=== PATIENT | female | born 1945 | race Caucasian/White ===

== ENCOUNTER 2016-08-24 11:37 | Inpatient (IN) | payer MEDICARE, OTHER ==
[~2016-08-24] VITALS: Ht 167.6 cm; Wt 60.8 kg
[2016-08-24] MEDS ORDERED: ARIP5TAB20 PO (11:53)
--- NOTE | 2016-08-24 12:06 | NUR ---
DR MANUEL AT THE BEDSIDE FOR EVAL AND EXAM.
[2016-08-24 12:36] LABS: BASOPHILS # (AUTO) 0.1 K/uL (0.0-8.0); BASOPHILS % (AUTO) 1.1 % (0.0-2.0); EOSINOPHILS # (AUTO) 0.1 K/uL (0.0-0.7); EOSINOPHILS % (AUTO) 1.7 % (0.0-7.0); HEMATOCRIT 43.1 % (31.2-41.9); HEMOGLOBIN 14.3 g/dL (10.9-14.3); LYMPHOCYTES # (AUTO) 1.4 K/uL (20.0-40.0); LYMPHOCYTES % (AUTO) 26.7 % (20.5-51.5); MEAN CORPUSCULAR HGB CONC 33 g/dL (32.3-35.6); MEAN CORPUSCULAR VOLUME 93.8 fL (75.5-95.3); MONOCYTES # (AUTO) 0.4 K/uL (2.0-10.0); MONOCYTES % (AUTO) 7.9 % (0.0-11.0); NEUTROPHILS # (AUTO) 3.2 K/uL (1.8-8.9); NEUTROPHILS % (AUTO) 62.6 % (38.5-71.5); PLATELET COUNT (AUTO) 201 K/uL (179-408); WHITE BLOOD COUNT (AUTO) 5.3 K/uL (3.8-11.8)
[2016-08-24 12:36] LABS: *BLOOD, URINE NEGATIVE (NEGATIVE); *CLARITY,URINE SLIGHTLY CLOUDY (CLEAR); *COLOR,URINE YELLOW (YELLOW); *KETONES,URINE NEGATIVE (NEGATIVE); *PROTEIN,URINE 1+ (NEGATIVE); LEUKOCYTE ESTERASE ,URINE 1+ (NEGATIVE); NITRITE, URINE NEGATIVE (NEGATIVE); PH,URINE 5.5 (5.0-8.0); UGLUCOSE NEGATIVE (NEGATIVE)
[2016-08-24 12:41] LABS: *BILIRUBIN,URIN NEGATIVE (NEGATIVE)
[2016-08-24 12:45] LABS: BACTERIA,URINE FEW /HPF (NONE SEEN); RBC,URINE 0-3 /HPF (0-3); SQUAMOUS EPITHELIAL CELL,UR FEW /HPF (NONE SEEN)
[2016-08-24 12:53] LABS: ALANINE AMINOTRANSFERASE 34 U/L (14-59); ALKALINE PHOSPHATASE 56 U/L (50-136); ASPARTATE AMINOTRANSFERASE 33 U/L (15-37); BILIRUBIN,DIRECT 0.2 mg/dL (0.0-0.2); BILIRUBIN,TOTAL 0.8 mg/dL (0.2-1.0); CALCIUM 9.6 mg/dL (8.5-10.1); CARBON DIOXIDE 28 mmol/L (21-32); CHLORIDE 105 mmol/L (98-107); CREATININE 1.3 mg/dL (0.6-1.3); GLUCOSE 98 mg/dL (74-106); POTASSIUM 3.6 mmol/L (3.5-5.1); SODIUM SERUM 142 mmol/L (136-145); TOTAL PROTEIN, SERUM 7.3 g/dL (6.4-8.2)
[2016-08-24 12:55] LABS: *AMPHETAMINE, URINE NEGATIVE (NEGATIVE); *BARBITURATE, URINE NEGATIVE (NEGATIVE); *CANNABINOID, URINE NEGATIVE (NEGATIVE); *COCCAINE, URINE NEGATIVE (NEGATIVE); *OPIATE, URINE POSITIVE (NEGATIVE); *PHENCYCLIDINE SCREEN,URINE NEGATIVE (NEGATIVE)
[2016-08-24 12:55] LABS: ETHANOL < 3 MG/DL (0-0)
--- NOTE | 2016-08-24 13:01 | NUR ---
LUNCH PROVIDED, PT ASSISSTED BY SON FOR FEEDING. NO C/O PAIN. PT REMAINS COOPERATIVE.
[2016-08-24 13:02] LABS: UREA NITROGEN, BLOOD 16 mg/dL (7-18)
[2016-08-24 13:23] LABS: ACETAMINOPHEN < 2.0 ug/mL (10-30)
--- NOTE | 2016-08-24 13:46 | NUR ---
PT IS MEDICALLY CLEARED BY DR MANUEL. JO ANN NEVES NOTIFIED AND WILL BE AVAILABLE AFTER 30-5. PER REQUEST CALLED AND LEFT MESSAGE FOR DEXTER(PET TEAM).
--- NOTE | 2016-08-24 14:09 | NUR ---
DEXTER FROM PET ETA IS 10 MIN.
--- NOTE | 2016-08-24 14:20 | NUR ---
ART FROM PET AT THE BEDSIDE FOR PSYCH EVAL.
--- NOTE | 2016-08-24 14:40 | NUR ---
PT PLACED ON 5150 HOLD FOR GD AND DO.
[2016-08-24 15:45] VITALS: BP 140/80
[2016-08-24] MEDS ORDERED: MAGNESIUM HYDROXIDE 30 ML LIQUID UDC PO PRN (16:00)
--- NOTE | 2016-08-24 16:56 | NUR ---
GPS.RN- ADMISSION NOTE Patient admitted on 5150 for Danger to Herself and Grave Disability, per 5150 Dr Barrios asked that pet team evaluate patient for a 5150, Patient or a 5150 . patient brought in by sons from [facility] [employer] [place] due to Threatening suicide, increased agitation confusion and disorganized past four weeks. Patient disoriented except for her name , patient easily agitated when asked questions past 4 weeks including today nonstop SI hiding knives. Unable to be managed at home very labile. History of psychiatric hospitalizations and suicide attempts. Patient in ER told her sons she wanted to kill herself. Upon face assessment, patient is oriented to self only, patient s easily irritable upon asking questions stating "I am just stupid", patient is labile and aggressive towards son when providing her information on her admission, angry labile. patient has poor insight. patient confused to place time and situation, believes she is in her apartment and that "Nathan" is upstairs. patient has been hospitalized before for psych 4 times suicide attempts x3.
[2016-08-24] MEDS: CLONAZEPAM 0.5 MG TABLET PO PRN (17:42)
--- NOTE | 2016-08-24 18:04 | NUR ---
GPS/RN -PATIENT PROVIDED WITH PRN KLONOPIN, EFFECTIVE AT THIS TIME PATIENT RESTING IN BED CONSTANTLY TRYING TO AWOL, ANXIOUS, RESTLESS.
[2016-08-24 20:00] VITALS: BP 119/75
--- NOTE | 2016-08-25 06:17 | NUR ---
GPS: REMAIN CALM AND COOPERATIVE WITH CARE. SLEPT 4 HRS THROUGH THE NIGHT. PLEASANT UPON APPROACH. NO BEHAVIOR PROBLEM NOTED. CONTINUE PLAN OF CARE.
[2016-08-25 08:00] VITALS: BP 119/71
[2016-08-25] MEDS: CLONAZEPAM 0.5 MG TABLET PO PRN ×2 (08:28→14:32)
--- NOTE | 2016-08-25 10:24 | NUR ---
Initial discharge plan: Pt has been residing at her son's [Bjorn, ] apartment [[address];[place] [address]] recently.ASHLEY spoke with pt and she would like to return with her son.ASHLEY spoke with the son and he agreed to have his mother discharged back to his home.Son also agreed to arrange for transportation.ASHLEY will speak to MD, patient, and family to ensure an appropriate discharge plan is created.ASHLEY will form a safe and proper discharge plan.
--- NOTE | 2016-08-25 15:27 | NUR ---
Reviewed psychosocial done by Grey Teran. Addendum: 08/25/16 at 1527 by CHANG RAMIREZ Amended: Links added.
[2016-08-25 16:00] VITALS: BP 123/72
[2016-08-25] MEDS: OLANZAPINE ZYDIS 5 MG TAB.RAPDIS PO SCH ×2 (19:02→20:38)
[2016-08-25 20:22] VITALS: BP 128/64
[2016-08-25] MEDS: DIVALPROEX 250 MG TABLET.DR PO SCH (20:38)
--- NOTE | 2016-08-25 20:40 | NUR ---
ABLE TO TAKE HS MEDICATIONS ORDERED. ALERT TO SELF. HAS RISK FOR ELOPEMENT, CONSTANTLY BEING MONITORED. REMAINED CALM. NO SIGNS OF AGITATION OR AGGRESSION NOTED. NO ACUTE DISTRESS NOTED. WILL CONTINUE TO MONITOR
--- NOTE | 2016-08-26 06:43 | NUR ---
ABLE TO SLEEP FOR A TOTAL OF 6.30 HOURS. NO ACUTE DISTRESS NOTED. STILL NEEDS REDIRECTION. NO ATTEMPTS OF ELOPEMENT NOTED FOR THE SHIFT. NEEDS ATTENDED.
[2016-08-26 08:00] VITALS: BP 131/97
[2016-08-26] MEDS: DIVALPROEX 250 MG TABLET.DR PO SCH ×2 (09:20→20:53)
[2016-08-26] MEDS: OLANZAPINE ZYDIS 5 MG TAB.RAPDIS PO SCH ×3 (09:20→20:54)
[2016-08-26 16:23] VITALS: BP 119/68
[2016-08-26 20:37] VITALS: BP 135/67
[2016-08-27 07:30] VITALS: BP 107/53
[2016-08-27] MEDS: OLANZAPINE ZYDIS 5 MG TAB.RAPDIS PO SCH ×3 (09:18→20:17)
[2016-08-27] MEDS: DIVALPROEX 250 MG TABLET.DR PO SCH ×2 (09:18→20:17)
[2016-08-27 15:28] VITALS: BP 113/78
[2016-08-27 20:11] VITALS: BP 127/72
--- NOTE | 2016-08-27 22:06 | NUR ---
PATIENT REMAINS DISORIENTED, WALKING AROUND WITH A PILLOW CASE FILLED WITH MAGAZINES. PATIENT REQUIRES FREQUENT PROMPTING AND REDIRECTION. NO COMBATIVE BEHAVIOR, OR AGGRESSIVE BEHAVIOR NOTED WILL CONTINUE TO MONITOR.PATIENT VISIBLE ON UNIT, COMPLIANT WITH HS MEDICATION. PATIENT DENIES SI, WILL CONTINUE TO MONITOR.
[2016-08-28 07:30] VITALS: BP 128/66
[2016-08-28] MEDS: DIVALPROEX 250 MG TABLET.DR PO SCH ×2 (08:25→20:05)
[2016-08-28] MEDS: OLANZAPINE ZYDIS 5 MG TAB.RAPDIS PO SCH ×3 (08:25→20:05)
[2016-08-28 15:02] VITALS: BP 121/64
[2016-08-28 20:29] VITALS: BP 123/80
--- NOTE | 2016-08-28 21:53 | NUR ---
PATIENT REMAINS DISORIENTED, WALKING AROUND THE UNIT. PATIENT REQUIRES FREQUENT PROMPTING AND REDIRECTION. NO COMBATIVE BEHAVIOR, OR AGGRESSIVE BEHAVIOR NOTED WILL CONTINUE TO MONITOR.PATIENT VISIBLE ON UNIT, COMPLIANT WITH HS MEDICATION. PATIENT DENIES SI, WILL CONTINUE TO MONITOR.
[2016-08-29 07:27] LABS: BASOPHILS % (AUTO) 0.9 % (0.0-2.0); EOSINOPHILS # (AUTO) 0.2 K/uL (0.0-0.7); EOSINOPHILS % (AUTO) 5.6 % (0.0-7.0); HEMATOCRIT 40.7 % (31.2-41.9); HEMOGLOBIN 13.6 g/dL (10.9-14.3); LYMPHOCYTES # (AUTO) 1.7 K/uL (20.0-40.0); LYMPHOCYTES % (AUTO) 42.8 % (20.5-51.5); MEAN CORPUSCULAR HEMOGLOBIN 31.3 uug (24.7-32.8); MEAN CORPUSCULAR HGB CONC 33 g/dL (32.3-35.6); MEAN CORPUSCULAR VOLUME 93.7 fL (75.5-95.3); MONOCYTES # (AUTO) 0.3 K/uL (2.0-10.0); MONOCYTES % (AUTO) 9.3 % (0.0-11.0); NEUTROPHILS # (AUTO) 1.5 K/uL (1.8-8.9); NEUTROPHILS % (AUTO) 41.4 % (38.5-71.5); PLATELET COUNT (AUTO) 158 K/uL (179-408); RED BLOOD CELL COUNT(AUTO) 4.34 MIL/uL (3.63-4.92); RED CELL DISTRIBUTION WIDTH 13.2 % (12.3-17.7); WHITE BLOOD COUNT (AUTO) 3.7 K/uL (3.8-11.8)
[2016-08-29 07:30] VITALS: BP 131/61
[2016-08-29 07:39] LABS: CALCIUM 9.6 mg/dL (8.5-10.1); CREATININE 0.8 mg/dL (0.6-1.3)
[2016-08-29 07:45] LABS: POTASSIUM 4.2 mmol/L (3.5-5.1)
[2016-08-29] MEDS: DIVALPROEX 250 MG TABLET.DR PO SCH ×2 (08:05→20:02)
[2016-08-29] MEDS: OLANZAPINE ZYDIS 5 MG TAB.RAPDIS PO SCH ×3 (08:05→20:03)
[2016-08-29 15:03] VITALS: BP 110/71
[2016-08-29 20:41] VITALS: BP 131/80
[2016-08-29] MEDS: TEMAZEPAM 15 MG CAPSULE PO PRN (23:37)
[2016-08-30 07:26] LABS: EOSINOPHILS # (AUTO) 0.2 K/uL (0.0-0.7); EOSINOPHILS % (AUTO) 5.3 % (0.0-7.0); HEMATOCRIT 41.4 % (31.2-41.9); HEMOGLOBIN 13.7 g/dL (10.9-14.3); LYMPHOCYTES # (AUTO) 1.5 K/uL (20.0-40.0); LYMPHOCYTES % (AUTO) 37.9 % (20.5-51.5); MEAN CORPUSCULAR HEMOGLOBIN 31.3 uug (24.7-32.8); MEAN CORPUSCULAR HGB CONC 33 g/dL (32.3-35.6); MEAN CORPUSCULAR VOLUME 94.7 fL (75.5-95.3); MONOCYTES # (AUTO) 0.3 K/uL (2.0-10.0); MONOCYTES % (AUTO) 8.6 % (0.0-11.0); NEUTROPHILS # (AUTO) 1.9 K/uL (1.8-8.9); NEUTROPHILS % (AUTO) 47.2 % (38.5-71.5); PLATELET COUNT (AUTO) 142 K/uL (179-408); RED BLOOD CELL COUNT(AUTO) 4.37 MIL/uL (3.63-4.92); WHITE BLOOD COUNT (AUTO) 3.9 K/uL (3.8-11.8)
[2016-08-30 07:28] VITALS: BP 142/78
--- NOTE | 2016-08-30 07:41 | NUR ---
GPS/RN- patient complaining of left sided mid chest pain, describing as burning. Vitals stable taken, EKG stat ordered, Normal Sinus Rhythm at this time. denies any pain radiating anywhere. continue to monitor
[2016-08-30] MEDS: MAG HYDROX/AL HYDROX/SIMETH 30 ML LIQUID UDC PO PRN ×2 (07:49→18:26)
[2016-08-30 08:02] LABS: THYROID STIMULATING HORMONE 1.065 mIU/mL (0.358-3.740)
--- NOTE | 2016-08-30 09:22 | NUR ---
GPS/RN- PATIENT REPORTED IMPROVED PAIN WITH EATING.
[2016-08-30] MEDS: ASPIRIN EC 81 MG TABLET.DR PO SCH (10:19)
[2016-08-30 10:45] LABS: ALBUMIN 3.3 g/dL (3.4-5.0); BILIRUBIN,TOTAL 0.6 mg/dL (0.2-1.0); CALCIUM 9.8 mg/dL (8.5-10.1); CREATININE 0.9 mg/dL (0.6-1.3); PHOSPHOROUS 3.3 mg/dL (2.5-4.9); POTASSIUM 3.7 mmol/L (3.5-5.1); TOTAL PROTEIN, SERUM 6.3 g/dL (6.4-8.2)
[2016-08-30] MEDS: OLANZAPINE ZYDIS 5 MG TAB.RAPDIS PO SCH ×2 (11:04→20:12)
[2016-08-30] MEDS: DIVALPROEX 250 MG TABLET.DR PO SCH ×2 (11:04→20:12)
[2016-08-30] MEDS: FAMOTIDINE 20 MG TABLET PO SCH (15:41)
[2016-08-30 16:00] VITALS: BP 131/61
--- NOTE | 2016-08-30 16:15 | NUR ---
GPS/RN PATIENT TROPONIN CHECKED TODAY DUE TO COMPLAINTS OF SOME CHEST PAIN. PATIENT STABLE. NO FURTHER COMPLAINTS, CONTINUE TO MONITOR
[2016-08-30 20:21] VITALS: BP 127/74
--- NOTE | 2016-08-30 22:00 | NUR ---
received to care, sitting in her room. non interactive with peers. answers when engaged. compliant with medications, and staff direction. fluids given, but bedtime snack was refused. denies any pain or discomfort. as of 2199, she appears to be asleep. no distress noted. will continue to monitor closely. Addendum: 08/30/16 at 2319 by SHRUTHI BRADSHAW LVN remains confused, and disorganized.
--- NOTE | 2016-08-31 06:00 | NUR ---
slept 8 hours. remains asleep, but easy to awaken. no distress noted. will continue to monitor closely.
[2016-08-31] MEDS: MAG HYDROX/AL HYDROX/SIMETH 30 ML LIQUID UDC PO PRN ×2 (06:52→15:26)
[2016-08-31] MEDS: ACETAMINOPHEN 325 MG TABLET PO PRN ×2 (06:53→21:46)
--- NOTE | 2016-08-31 06:54 | NUR ---
c/o abdominal pain to left upper quadrant. states it is hurting, but can not scale the pain. PRN mylanta and tylenol were given, at this time.
[2016-08-31 07:30] VITALS: BP 131/68
[2016-08-31 07:50] LABS: CALCIUM 9.5 mg/dL (8.5-10.1); CREATININE 0.9 mg/dL (0.6-1.3); POTASSIUM 3.8 mmol/L (3.5-5.1)
[2016-08-31] MEDS: ASPIRIN EC 81 MG TABLET.DR PO SCH (08:43)
[2016-08-31] MEDS: FAMOTIDINE 20 MG TABLET PO SCH (08:43)
[2016-08-31] MEDS: DIVALPROEX 250 MG TABLET.DR PO SCH ×2 (08:43→21:47)
[2016-08-31] MEDS: OLANZAPINE ZYDIS 5 MG TAB.RAPDIS PO SCH ×2 (08:43→21:47)
--- NOTE | 2016-08-31 14:00 | NUR ---
followed up with radiology no results yet from MD KEYA still needs to read
[2016-08-31] MEDS ORDERED: INSULIN REGULAR, HUMAN 100 UNIT in IV NORMAL SALINE 99 ML IV PRN ×2 (14:45)
[2016-08-31 15:03] VITALS: BP 136/65
--- NOTE | 2016-08-31 15:05 | NUR ---
contacted Radiology again, MD still needs to read KUB, test done at noon, patient complaining of left quadrant pain.
[2016-08-31] MEDS ORDERED: IV NS 1000 ML 1,000 ML IV ONE (15:45)
--- NOTE | 2016-08-31 15:52 | NUR ---
GPS/RN- results received for KUB, patient with kidney stone, Jamialh Infante N.P. notified, orders will be placed no verbal received.
[2016-08-31] MEDS ORDERED: IV 1/2NS 1000 ML 1,000 ML IV ONE (16:00)
--- NOTE | 2016-08-31 18:28 | NUR ---
pt started on ivf 1/2 ns at 100cc /hr as ordered times 10 hourswith 24 guage needle in rfawith kerlix wrap/
[2016-08-31 21:00] VITALS: BP 127/72
--- NOTE | 2016-08-31 22:00 | NUR ---
received to care, lying in bed, pleasant upon approach. remains isolative. compliant with medications, and staff direction. PRN tylenol given at 6, for left upper quadrant pain, 7/10 on pain scale. IV 1/2 NS remains patent, and continues to infuse at 100 ml/hour, to the right forearm. as of 2199, she is sleeping intermittently. monitored closely for safety. will continue to monitor closely.
--- NOTE | 2016-08-31 22:40 | NUR ---
states good pain relief, 08/07.
--- NOTE | 2016-08-31 23:00 | NUR ---
appears to be asleep. no distress noted.
--- NOTE | 2016-09-01 02:00 | NUR ---
IV fluids completed. converted to hep lock, was flushed, and remains intact.
--- NOTE | 2016-09-01 06:05 | NUR ---
slept 9 hours. remains asleep, but easy to awaken. no distress noted. will continue to monitor closely.
[2016-09-01 07:30] VITALS: BP 124/69
[2016-09-01] MEDS: FAMOTIDINE 20 MG TABLET PO SCH (08:01)
[2016-09-01] MEDS: DIVALPROEX 250 MG TABLET.DR PO SCH ×2 (08:01→20:00)
[2016-09-01] MEDS: OLANZAPINE ZYDIS 5 MG TAB.RAPDIS PO SCH ×2 (08:02→20:01)
[2016-09-01 15:10] VITALS: BP 122/65
[2016-09-01 20:28] VITALS: BP 119/69
[2016-09-02] MEDS: CLONAZEPAM 0.5 MG TABLET PO PRN (06:19)
[2016-09-02 07:00] LABS: *BILIRUBIN,URIN NEGATIVE (NEGATIVE); *BLOOD, URINE NEGATIVE (NEGATIVE); *CLARITY,URINE CLEAR (CLEAR); *COLOR,URINE YELLOW (YELLOW); *KETONES,URINE NEGATIVE (NEGATIVE); *PROTEIN,URINE NEGATIVE (NEGATIVE); *UROBILINOGEN,URINE 0.2 E.U./dl (NORMAL); LEUKOCYTE ESTERASE ,URINE 1+ (NEGATIVE); NITRITE, URINE NEGATIVE (NEGATIVE); UGLUCOSE NEGATIVE (NEGATIVE)
[2016-09-02 07:39] LABS: BACTERIA,URINE NONE SEEN /HPF (NONE SEEN); RBC,URINE 0-3 /HPF (0-3); SQUAMOUS EPITHELIAL CELL,UR MODERATE /HPF (NONE SEEN)
[2016-09-02 07:49] VITALS: BP 116/63
[2016-09-02] MEDS: DIVALPROEX 250 MG TABLET.DR PO SCH ×2 (08:05→20:08)
[2016-09-02] MEDS: FAMOTIDINE 20 MG TABLET PO SCH (08:05)
[2016-09-02] MEDS: OLANZAPINE ZYDIS 5 MG TAB.RAPDIS PO SCH ×2 (08:05→20:08)
[2016-09-02] MEDS: CEPHALEXIN MONOHYDRATE 500 MG CAPSULE PO SCH ×3 (11:01→20:13)
[2016-09-02 15:29] VITALS: BP 127/77
[2016-09-02 20:42] VITALS: BP 129/81
[2016-09-03] MEDS: CEPHALEXIN MONOHYDRATE 500 MG CAPSULE PO SCH ×2 (06:38→13:32)
[2016-09-03 07:11] LABS: EOSINOPHILS # (AUTO) 0.2 K/uL (0.0-0.7); EOSINOPHILS % (AUTO) 5.5 % (0.0-7.0); HEMATOCRIT 38.6 % (37-47); HEMOGLOBIN 13.2 G/DL (12.0-16.0); LYMPHOCYTES # (AUTO) 1.4 K/uL (20.0-40.0); MEAN CORPUSCULAR HEMOGLOBIN 32.3 UUG (27.0-31.0); MEAN CORPUSCULAR HGB CONC 34 g/dL (32.0-37.0); MEAN CORPUSCULAR VOLUME 94.5 FL (81.0-99.0); MONOCYTES # (AUTO) 0.4 K/uL (2.0-10.0); MONOCYTES % (AUTO) 10.2 % (0.0-11.0); NEUTROPHILS # (AUTO) 1.5 K/uL (1.8-8.9); NEUTROPHILS % (AUTO) 43.3 % (38.5-71.5); PLATELET COUNT (AUTO) 125 K/UL (150-450); RED BLOOD CELL COUNT(AUTO) 4.09 MIL/UL (4.2-5.4); RED CELL DISTRIBUTION WIDTH 12.9 % (11.5-14.5); WHITE BLOOD COUNT (AUTO) 3.5 K/UL (4.0-11.2)
[2016-09-03 07:30] VITALS: BP 124/84
[2016-09-03 07:50] LABS: ALBUMIN 3.1 g/dL (3.4-5.0); BILIRUBIN,TOTAL 0.5 mg/dL (0.2-1.0); CREATININE 0.9 mg/dL (0.6-1.3); PHOSPHOROUS 3.7 mg/dL (2.5-4.9); POTASSIUM 4.2 mmol/L (3.5-5.1); TOTAL PROTEIN, SERUM 5.9 g/dL (6.4-8.2)
[2016-09-03] MEDS: DIVALPROEX 250 MG TABLET.DR PO SCH ×2 (08:10→20:00)
[2016-09-03] MEDS: OLANZAPINE ZYDIS 5 MG TAB.RAPDIS PO SCH ×2 (08:10→20:01)
[2016-09-03] MEDS: FAMOTIDINE 20 MG TABLET PO SCH (08:10)
[2016-09-03 15:35] VITALS: BP 133/83
[2016-09-03] MEDS: AMPICILLIN 500 MG CAPSULE PO SCH (17:16)
[2016-09-03 20:00] VITALS: BP 139/82
[2016-09-03] MEDS: TEMAZEPAM 15 MG CAPSULE PO PRN (23:45)
[2016-09-04] MEDS: AMPICILLIN 500 MG CAPSULE PO SCH ×4 (00:31→11:18)
--- NOTE | 2016-09-04 01:41 | NUR ---
0115- Patient was found lying on floor by JOE who is 1:1 sitter for 138B. Patient was assisted by staff back to bed. Patient denied falling, hitting head, denied any new onset of pain. VS were taken. BP 138/89 HR 89 RR18 O2 95% on RA. Will monitor. Addendum: 09/04/16 at 0147 by MISAEL SALDAÑA RN 0140- Patient in bed asleep at this time, no acute distress noted. Addendum: 09/04/16 at 0612 by MISAEL SALDAÑA RN 06- David Madrid NP notified, new orders received Addendum: 09/04/16 at 0648 by MISAEL SALDAÑA RN David Madrid NP notified, new orders received, unable to reach family member at this time, will endorse to day shift nurse.
[2016-09-04] MEDS: MAG HYDROX/AL HYDROX/SIMETH 30 ML LIQUID UDC PO PRN (03:14)
[2016-09-04] MEDS: ACETAMINOPHEN 325 MG TABLET PO PRN (03:15)
[2016-09-04 07:30] VITALS: BP 135/65
[2016-09-04] MEDS: OLANZAPINE ZYDIS 5 MG TAB.RAPDIS PO SCH (08:03)
[2016-09-04] MEDS: DIVALPROEX 250 MG TABLET.DR PO SCH (08:03)
[2016-09-04] MEDS: FAMOTIDINE 20 MG TABLET PO SCH (08:03)
--- NOTE | 2016-09-04 11:39 | NUR ---
DC Note: The patient will be discharged today to [facility] ([facility]) [[address] [place] [address]; ] via ambulance. Spoke with Jordan at the facility who stated that they will be accepting the patient today. Spoke with the patient's son Bjorn and he is aware and agreeable with the discharge plan. The patient will follow-up at the facility with marketing producer Dr. Ferrera and psychiatrist Dr. Robertson. The patient was provided with the brief intervention for substance abuse and was provided with referrals to [facility] , [facility] , and [facility] .
--- NOTE | 2016-09-04 13:56 | NUR ---
Pt left unit on [facility] accompanied by 2 financial assistance specialist. Remains confused and disoriented. No aggressive or combative behavior noted. Denies pain or discomfort. Denies Si and Hi. Left with all noted belongings and paperwork. V/S stable. In no acute distress.
== END 2016-09-04 13:59 | DRG 885 ==
LOC: ER 11:49 → EDBD 11:49 → GPS 15:28
PROVIDERS: ADMIT Psychiatry & Neurology Psychiatry; ATTEND Family Medicine
DX: F29 Unspecified psychosis not due to a substance or known physiological condition (principal); N17.0 Acute kidney failure with tubular necrosis; R45.851 Suicidal ideations; N39.0 Urinary tract infection, site not specified; E87.0 Hyperosmolality and hypernatremia; E11.9 Type 2 diabetes mellitus without complications; I10 Essential (primary) hypertension; I25.10 Atherosclerotic heart disease of native coronary artery without angina pectoris; D69.6 Thrombocytopenia, unspecified; E78.5 Hyperlipidemia, unspecified; K21.9 Gastro-esophageal reflux disease without esophagitis; M81.0 Age-related osteoporosis without current pathological fracture; Z91.5 Personal history of self-harm; K57.30 Diverticulosis of large intestine without perforation or abscess without bleeding; E88.09 Other disorders of plasma-protein metabolism, not elsewhere classified; D72.819 Decreased white blood cell count, unspecified; F31.9 Bipolar disorder, unspecified; R10.13 Epigastric pain; M47.9 Spondylosis, unspecified; R93.8 Abnormal findings on diagnostic imaging of other specified body structures
CPT/HCPCS: 36415; 70030-TC; 70450; 73502; 74000; 80307; 83735; 84100; 84443; 85025; 87077; 87086; 93005; A4663; G0480-TC; G6040-TC; J0290; J3490; J7030